=== PATIENT | male | born 1995 | race Caucasian/White ===

== ENCOUNTER 2019-02-04 15:00 | Emergency (ER) | payer OTHER ==
[2019-02-04 15:24] VITALS: BP 133/91; PULSE 94; RESP 18; TEMP 99.1; O2SAT 99; BMI 19.5
--- NOTE | 2019-02-04 15:52 | C.PDOC ---
History Of Present Illness 23 year old male presents with persistent left temporal/upper face pain for the past 9 days. Patient accidentally hit himself on the edge of furnitue 9 days ago, still with persistent pain over the left temporal area that worsens with jaw movement. Denies swelling, nausea, vomiting, LOC, or other associated symptoms. persist L TEMPORAL/UPPER FACE PAIN X 9 DAYS. ACCID HIT EDGE OF FURNITURE 9 DAYS AGO, STILL W PERSIST PAIN OVER L TEMPORAL AREA WORSE W JAW MOVEMENT. NO SWELL, NV, LOC, OTHER ASSOC SX EXAM NAD NONTOXIC HEENT +MILD TEND L UPPER FACE @ MASSETER INSERTION REPRODUC PAIN W JAW FULL ROM; NO SWELL, DEFORM, DEPRESSION SKIN INTACT NECK SUPPLE NEURO INTACT MDM PROBABLE MASSETER CONTUSION; NO SIGNS ACUTE NEURO INJURY. PT OFFERED CT SCAN RO FX, INTRACRANIAL TRAUMA. VOICES UNDERSTANDING, PS DOESN'T WANT CT AND WILL PREFER TO FU OUTPT. REQUESTS MOTRIN RX ONLY Time Seen by Provider: 02/04/19 15:38 Chief Complaint (Nursing): Headache History Per: Patient History/Exam Limitations: no limitations Injury Occurred (Timing): Days Ago: (9) Onset/Duration Of Symptoms: Days Patient States: Struck With Object Loss Of Consciousness: No Recent travel outside of the [place]: No Past Medical History Reviewed: Historical Data, Nursing Documentation, Vital Signs Vital Signs: Last Vital Signs Temp 99.1 F 02/04/19 15:07 Pulse 94 H 02/04/19 15:07 Resp 18 02/04/19 15:07 BP 133/91 H 02/04/19 15:07 Pulse Ox 99 02/04/19 15:07 Family History: States: Unknown Family Hx - Social History Hx Alcohol Use: Yes Hx Substance Use: Yes - Immunization History Hx Tetanus Toxoid Vaccination: No Hx Influenza Vaccination: No Hx Pneumococcal Vaccination: No Review Of Systems Except As Marked, All Systems Reviewed And Found Negative. Gastrointestinal: Negative for: Nausea, Vomiting Musculoskeletal: Positive for: Other (Left temporal/upper facial pain) Neurological: Negative for: Dizziness, Other (LOC) Physical Exam - Physical Exam Appears: Non-toxic, No Acute Distress Skin: Normal Color, Warm Head: Normacephalic, Other (Mild tenderness to left upper face at masseter insertion, reproducible pain with jaw full ROM; no swelling, deformity, or depression, skin intact) Eye(s): bilateral: Normal Inspection, PERRL, EOMI Ear(s): Bilateral: Normal Nose: Normal Oral Mucosa: Moist Throat: Normal, No Erythema, No Exudate Neck: Normal, No Midline Cervical Tenderness, No Paracervical Tenderness, Supple Neurological/Psych: Oriented x3, Normal Speech, Normal Cranial Nerves, Normal Motor, Normal Sensation Gait: Steady ED Course And Treatment O2 Sat by Pulse Oximetry: 99 (Room air) Pulse Ox Interpretation: Normal Medical Decision Making Medical Decision Making: PROBABLE MASSETER CONTUSION; NO SIGNS ACUTE NEURO INJURY. PT OFFERED CT SCAN RO FX, INTRACRANIAL TRAUMA. VOICES UNDERSTANDING, PS DOESN'T WANT CT AND WILL PREFER TO FU OUTPT. REQUESTS MOTRIN RX ONLY Disposition Counseled Patient/Family Regarding: Studies Performed, Diagnosis, Need For Followup, Rx Given - Disposition Referrals: [facility], [facility]–1983 Service [Outside] [facility] [Outside] Karri Willett MD [Staff Provider] - Disposition: HOME/ ROUTINE Disposition Time: 15:52 Condition: GOOD Prescriptions: Ibuprofen [Motrin Tab] 800 mg PO Q6 #30 tab Instructions: Minor Head Injury (DC) Forms: [facility] (Indonesian), Work Excuse - Clinical Impression Clinical Impression: Minor head injury - Scribe Statement The provider has reviewed the documentation as recorded by the Scribe Carson Felder All medical record entries made by the Scribe were at my direction and personally dictated by me. I have reviewed the chart and agree that the record accurately reflects my personal performance of the history, physical exam, medical decision making, and the department course for this patient. I have also personally directed, reviewed, and agree with the discharge instructions and disposition.
== END 2019-02-04 16:06 | disposition home or self-care (01) ==
LOC: C.ER 15:00
DX: S09.90XA Unspecified injury of head, initial encounter (principal); W22.03XA Walked into furniture, initial encounter